=== PATIENT | male | born 1980 | race American Indian/Alaskan Native ===

== ENCOUNTER 2016-11-02 00:10 | Emergency (ER) | payer OTHER ==
[2016-11-02 00:24] VITALS: O2SAT 100
[2016-11-02] MEDS ORDERED: Sodium Chloride 0.9% 1,000 ML IV ONE ×2 (00:46)
[2016-11-02 01:08] LABS: BASO # 0.1 K/uL (0.0-0.2); EOS % 0.4 % (0.0-4.0); HEMATOCRIT 41.7 % (35.0-51.0); LYMPH # 2.4 K/uL (1.0-4.3); LYMPH % 34.3 % (20.0-40.0); MEAN CELL VOLUME 87.6 fL (80.0-94.0); MEAN CORPUSCULAR HEMOGLOBIN 29.4 pg (27.0-31.0); MEAN CORPUSCULAR HGB CONC 33.6 g/dL (33.0-37.0); MONO # 0.6 K/uL (0.0-0.8); MONO % 8.1 % (0.0-10.0); RED CELL DISTRIBUTION WIDTH 13.1 % (11.5-14.5); WHITE BLOOD COUNT 6.9 K/uL (4.8-10.8)
[2016-11-02 01:11] LABS: CHLORIDE 102 mmol/L (98-107)
[2016-11-02 01:12] LABS: POTASSIUM 3.8 mmol/L (3.6-5.2); SODIUM 141 mmol/L (132-148)
--- NOTE | 2016-11-02 01:13 | C.PDOC ---
History Of Present Illness A 36 year old male presents to the emergency room with complaints of abdominal pain for the last few days. Patient is a poor historian. Patient was seen at [facility] yesterday and left after the pain improved. Patient states pain returned 1 hr ago. Patient states the pain is severe and located in the epigastric region. Patient also notes several episodes of vomiting. Patient reports heavy daily drinking until 2 days ago. Patient denies any fever, chills, any urinary symptoms, diarrhea, or any other complaints. Time Seen by Provider: 11/02/16 00:41 Chief Complaint (Nursing): Abdominal Pain History Per: Patient History/Exam Limitations: no limitations Onset/Duration Of Symptoms: Hrs (Returned 1 hr ago), Days (Few days) Current Symptoms Are (Timing): Still Present Severity: Severe Location Of Pain/Discomfort: Epigastric Radiation Of Pain To:: None Quality Of Discomfort: "Pain" Associated Symptoms: Vomiting. denies: Fever, Chills, Diarrhea, Urinary Symptoms Exacerbating Factors: None Alleviating Factors: None Recent travel outside of the [place]: No Past Medical History Reviewed: Historical Data, Nursing Documentation, Vital Signs Vital Signs: Last Vital Signs Temp 98.3 F 11/02/16 05:28 Pulse 51 L 11/02/16 05:28 Resp 18 11/02/16 05:28 BP 95/59 L 11/02/16 05:28 Pulse Ox 100 11/02/16 05:33 - Medical History PMH: No Chronic Diseases Surgical History: No Surg Hx Family History: States: Unknown Family Hx - Social History Hx Alcohol Use: Yes Hx Substance Use: No (DENIED) Review Of Systems Constitutional: Negative for: Fever, Chills Gastrointestinal: Positive for: Vomiting, Abdominal Pain (Epigastric). Negative for: Diarrhea Physical Exam - Physical Exam Appears: In Acute Distress Skin: Warm, Dry Head: Atraumatic, Normacephalic Cardiovascular: Rhythm Regular, No Murmur Respiratory: Normal Breath Sounds, No Rales, No Rhonchi Gastrointestinal/Abdominal: Soft, Tenderness (Slight epigastric tenderness), No Guarding, No Rebound Extremity: Normal ROM, No Tenderness Neurological/Psych: Oriented x3, Normal Speech ED Course And Treatment - Laboratory Results Result Diagrams: 11/02/16 01:01 11/02/16 01:01 O2 Sat by Pulse Oximetry: 100 Medical Decision Making Medical Decision Making: Plan: -- Pepcid, Toradol, & Zofran -- Labs Progress Notes: Abd continued soft, but additional pain meds needed Labs unremarkable, no indication of surgical abd Plan dc home clinic f/u Disposition Counseled Patient/Family Regarding: Studies Performed, Diagnosis, Need For Followup - Disposition Referrals: [facility] [Outside] Disposition: HOME/ ROUTINE Disposition Time: 05:21 Condition: GOOD Additional Instructions: Follow up with pcp or our clinic Prescriptions: Famotidine [Pepcid] 1 tab PO BID #30 tab Ondansetron ODT [Zofran ODT] 1 odt PO BID PRN #6 odt PRN Reason: Nausea/Vomiting Instructions: Acute Abdominal Pain (ED) - Clinical Impression Clinical Impression: Abdominal pain - Scribe Statement The provider has reviewed the documentation as recorded by the Scribnikkie Santizo All medical record entries made by the Karolynibnikkie were at my direction and personally dictated by me. I have reviewed the chart and agree that the record accurately reflects my personal performance of the history, physical exam, medical decision making, and the department course for this patient. I have also personally directed, reviewed, and agree with the discharge instructions and disposition.
[2016-11-02 01:14] LABS: ALB/GLOB RATIO 1.2 (1.0-2.1); ALKALINE PHOSPHATASE 80 U/L (38-126); AST/SGOT 31 U/L (17-59); BILIRUBIN,TOTAL 0.6 mg/dL (0.2-1.3); BLOOD UREA NITROGEN 17 mg/dL (9-20); CARBON DIOXIDE 22 mmol/L (22-30); GFR AFRICAN-AMERICAN > 60; TOTAL PROTEIN 8.5 g/dL (6.3-8.3)
[2016-11-02 01:15] LABS: ALT/SGPT 36 U/L (21-72); CALCIUM 9.8 mg/dl (8.6-10.4); GLUCOSE,RANDOM 99 mg/dL (75-110)
[2016-11-02] MEDS ORDERED: Sodium Chloride 0.9% 50 ML IV ONE (01:42)
[2016-11-02 02:51] LABS: RBC URINE 16 /hpf (0-3); URINE BACTERIA OCC (<OCC); URINE BILIRUBIN NEGATIVE (NEGATIVE); URINE BLOOD NEGATIVE (NEGATIVE); URINE COLOR Yellow (YELLOW); URINE GLUCOSE (UA) NORMAL (Normal); URINE KETONE 1+ mg/dL (NEGATIVE); URINE LEUKOCYTE ESTERASE NEG Leu/uL (Negative); URINE PROTEIN 1+ mg/dL (NEGATIVE); WBC URINE 14 /hpf (0-5)
[2016-11-02 02:52] VITALS: RESP 18
[2016-11-02] MEDS ORDERED: HYDROmorphone 0.5 mg/0.5 ml ISec IVP STA (03:46)
[2016-11-02] MEDS ORDERED: Sodium Chloride 0.9% 1,000 ML ONE (03:50)
[2016-11-02 05:29] VITALS: BP 95/59; PULSE 51; TEMP 98.3
== END 2016-11-02 05:47 | disposition home or self-care (01) ==
LOC: C.ER 00:10
DX: R10.13 Epigastric pain (principal)

== ENCOUNTER 2016-11-03 13:34 | Observation (INO) | payer OTHER ==
[2016-11-03] MEDS ORDERED: Sodium Chloride 0.9% 1,000 ML IV ONE (14:34)
[2016-11-03 14:54] VITALS: RESP 20
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
[2016-11-03] MEDS ORDERED: Sodium Chloride 0.9% 1,000 ML ONE ×2 (15:58→20:10)
[2016-11-03 17:26] LABS: RBC URINE 36 /hpf (0-3); URINE BACTERIA RARE (<OCC); URINE BILIRUBIN NEGATIVE (NEGATIVE); URINE BLOOD 2+ (NEGATIVE); URINE COLOR Yellow (YELLOW); URINE GLUCOSE (UA) NORMAL (Normal); URINE KETONE 1+ mg/dL (NEGATIVE); URINE LEUKOCYTE ESTERASE NEG Leu/uL (Negative); URINE PROTEIN NEGATIVE (NEGATIVE); URINE UROBILINOGEN NORMAL mg/dL (0.2-1.0); WBC URINE 3 /hpf (0-5)
[2016-11-03] MEDS ORDERED: Iohexol 350mg/ml 100 ML ONE (17:40)
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
[2016-11-03 19:01] LABS: BASO # 0.1 K/uL (0.0-0.2); BASO % 0.8 % (0.0-2.0); HEMATOCRIT 36.7 % (35.0-51.0); LYMPH # 1.8 K/uL (1.0-4.3); LYMPH % 24.3 % (20.0-40.0); MEAN CELL VOLUME 87.2 fL (80.0-94.0); MEAN CORPUSCULAR HEMOGLOBIN 28.7 pg (27.0-31.0); MEAN CORPUSCULAR HGB CONC 32.9 g/dL (33.0-37.0); MEAN PLATELET VOLUME 8.1 fL (7.2-11.7); MONO # 0.6 K/uL (0.0-0.8); MONO % 7.7 % (0.0-10.0); RED CELL DISTRIBUTION WIDTH 13.2 % (11.5-14.5); WHITE BLOOD COUNT 7.6 K/uL (4.8-10.8)
[2016-11-03 19:08] LABS: CHLORIDE 101 mmol/L (98-107); POTASSIUM 3.3 mmol/L (3.6-5.2); SODIUM 139 mmol/L (132-148)
[2016-11-03 19:10] LABS: BILIRUBIN,TOTAL 0.4 mg/dL (0.2-1.3); GFR AFRICAN-AMERICAN > 60
[2016-11-03 19:11] LABS: ALB/GLOB RATIO 1.3 (1.0-2.1); ALKALINE PHOSPHATASE 55 U/L (38-126); ALT/SGPT 23 U/L (21-72); AST/SGOT 21 U/L (17-59); BLOOD UREA NITROGEN 11 mg/dL (9-20); CALCIUM 8.7 mg/dl (8.6-10.4); CARBON DIOXIDE 22 mmol/L (22-30); GLUCOSE,RANDOM 124 mg/dL (75-110); TOTAL PROTEIN 6.7 g/dL (6.3-8.3)
[2016-11-03] MEDS: Sodium Chloride 0.9% 1,000 ML IV SCH (20:14)
[2016-11-03] MEDS ORDERED: DiphenhydrAMINE 50 mg/ml Inj IVP STA (20:52)
[2016-11-03] MEDS ORDERED: Morphine 4 MG/ML VIAL ONE ×2 (20:54→20:59)
[2016-11-04] MEDS: Sodium Chloride 0.9% 1,000 ML IV SCH (06:15)
[2016-11-04] MEDS ORDERED: Potassium Chloride 20 mEq 100 ML IVPB ONE (08:16)
[2016-11-04 08:30] VITALS: BP 126/79; PULSE 75; TEMP 98.6; O2SAT 100
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
[2016-11-04] MEDS ORDERED: Potassium Chloride 20 mEq ER Tab PO ONE (10:49)
[2016-11-07] MEDS ORDERED: Pneumococcal 23-Valent Vaccine IM ONE (10:00)
[2016-11-07] MEDS ORDERED: Influenza Virus Vaccine 45 mcg/0.5 ml Syr IM ONE (10:00)
== END 2016-11-04 11:50 | disposition home or self-care (01) ==
LOC: C.ER 13:34 → C.9E 20:03 → C.3T 21:50
PROVIDERS: ADMIT Internal Medicine; ATTEND Internal Medicine
DX: K52.9 Noninfective gastroenteritis and colitis, unspecified (principal); E87.6 Hypokalemia

== ENCOUNTER 2018-02-16 11:52 | Emergency (ER) | payer OTHER ==
[2018-02-16 11:59] VITALS: BP 129/82; PULSE 64; RESP 16; TEMP 98.3; O2SAT 100
[2018-02-16] MEDS ORDERED: Sodium Chloride 0.9% 1,000 ML IV STA (12:11)
[2018-02-16 12:32] LABS: BASO # 0.1 K/uL (0.0-0.2); BASO % 1.3 % (0.0-2.0); EOS # 0.1 K/uL (0.0-0.7); HEMOGLOBIN 12.3 g/dL (12.0-18.0); LYMPH % 31.3 % (20.0-40.0); MEAN CELL VOLUME 86.9 fL (80.0-94.0); MEAN CORPUSCULAR HEMOGLOBIN 29.8 pg (27.0-31.0); MEAN CORPUSCULAR HGB CONC 34.3 g/dL (33.0-37.0); MEAN PLATELET VOLUME 8.5 fL (7.2-11.7); MONO # 0.5 K/uL (0.0-0.8); MONO % 8.7 % (0.0-10.0); NEUT # 3.6 K/uL (1.8-7.0); NEUT % 57.7 % (50.0-75.0); RBC 4.11 Mil/uL (4.40-5.90); RED CELL DISTRIBUTION WIDTH 13.1 % (11.5-14.5); WHITE BLOOD COUNT 6.3 K/uL (4.8-10.8)
[2018-02-16 12:36] LABS: SQUAMOUS EPITHIAL < 1 /hpf (0-5); URINE BACTERIA OCC (<OCC); URINE BILIRUBIN NEGATIVE (NEGATIVE); URINE BLOOD 3+ (NEGATIVE); URINE CLARITY Hazy (Clear); URINE COLOR Yellow (YELLOW); URINE GLUCOSE (UA) NORMAL (Normal); URINE LEUKOCYTE ESTERASE 3+ Leu/uL (Negative); URINE PROTEIN 1+ mg/dL (NEGATIVE); URINE UROBILINOGEN NORMAL mg/dL (0.2-1.0)
[2018-02-16 12:45] LABS: ALB/GLOB RATIO 1.3 (1.0-2.1); ALBUMIN 4.4 g/dL (3.5-5.0); ALT/SGPT 28 U/L (21-72); AST/SGOT 28 U/L (17-59); BLOOD UREA NITROGEN 11 mg/dL (9-20); CALCIUM 9.2 mg/dl (8.6-10.4); GFR AFRICAN-AMERICAN > 60; GFR NON-AFRICAN AMERICAN > 60; LIPASE 44 U/L (23-300)
[2018-02-16] MEDS ORDERED: cefTRIAXone (Rocephin) 250 mg Inj IM STA (13:05)
--- NOTE | 2018-02-16 13:41 | US ---
HISTORY: scrotal pain TECHNIQUE: Realtime sonography through the scrotum with color and doppler flow. COMPARISON: None Available. FINDINGS: RIGHT TESTICLE: Measures 5.1 x 2.3 x 3.0 cm. Normal echotexture and flow. RIGHT EPIDIDYMIS: Epididymal head measures 0.9 x 1.1 x 1.6 cm. Small cyst/ spermatocele measuring 0.7 x 0.6 x 0.6 cm. Grossly unremarkable appearance with normal flow. LEFT TESTICLE: Measures 4.7 x 2.0 x 2.9 cm. Normal echotexture and flow. Punctate testicular calcification. LEFT EPIDIDYMIS: Epididymal head measures 1.2 x 1.1 x 1.5 cm. Grossly unremarkable appearance with normal flow. HYDROCELE: None. VARICOCELE: Questionable small right varicocele. OTHER FINDINGS: None. IMPRESSION: No evidence of acute recent testicular torsion. Questionable small right varicocele. Small right epididymal head cyst/spermatocele.
--- NOTE | 2018-02-16 13:49 | C.PDOC ---
History Of Present Illness 37 year old male presents to the ED for evaluation after he noticed blood in his sperm over the past 3 days. Patient reports feeling discomfort in his testicular area. He denies fever, chills, urinary frequency/urgency at this time. Time Seen by Provider: 02/16/18 12:04 Chief Complaint (Nursing): Male Genitourinary History Per: Patient History/Exam Limitations: no limitations Onset/Duration Of Symptoms: Days (3) Current Symptoms Are (Timing): Still Present Associated Symptoms: denies: Fever, Chills, Urinary Symptoms Additional History Per: Patient Past Medical History Reviewed: Historical Data, Nursing Documentation, Vital Signs Vital Signs: Last Vital Signs Temp 98.3 F 02/16/18 11:57 Pulse 64 02/16/18 11:57 Resp 16 02/16/18 11:57 BP 129/82 02/16/18 11:57 Pulse Ox 100 02/16/18 18:36 - Medical History PMH: No Chronic Diseases Surgical History: No Surg Hx Family History: States: Unknown Family Hx - Social History Hx Alcohol Use: Yes (prior to onset of symtoms) Hx Substance Use: No - Immunization History Hx Tetanus Toxoid Vaccination: No Hx Influenza Vaccination: No Hx Pneumococcal Vaccination: No Review Of Systems Constitutional: Negative for: Fever, Chills Gastrointestinal: Positive for: Other (hematospermia) Genitourinary: Negative for: Frequency Physical Exam - Physical Exam Appears: Non-toxic, No Acute Distress Skin: Normal Color, Warm, Dry Head: Atraumatic, Normacephalic Eye(s): bilateral: Normal Inspection Oral Mucosa: Moist Neck: Supple Chest: Symmetrical, No Deformity, No Tenderness Cardiovascular: Rhythm Regular Respiratory: Normal Breath Sounds, No Rales, No Rhonchi, No Wheezing Gastrointestinal/Abdominal: Soft, No Tenderness, No Guarding, No Rebound Male Genital: Normal Inspection, No Testicular Tenderness, No Testicular Swelling Extremity: Normal ROM, Capillary Refill (less than 2 seconds ) Neurological/Psych: Oriented x3, Normal Speech, Normal Cognition ED Course And Treatment - Laboratory Results Result Diagrams: 02/16/18 12:27 02/16/18 12:27 O2 Sat by Pulse Oximetry: 100 (on RA) Pulse Ox Interpretation: Normal - CT Scan/US testicular ultrasound Other Rad Studies (CT/US): Interpreted By Me, Read By Radiologist, Radiology Report Reviewed CT/US Interpretation: HISTORY: scrotal pain. TECHNIQUE: Realtime sonography through the scrotum with color and doppler flow. COMPARISON: None Available. FINDINGS: RIGHT TESTICLE: Measures 5.1 x 2.3 x 3.0 cm. Normal echotexture and flow. RIGHT EPIDIDYMIS: Epididymal head measures 0.9 x 1.1 x 1.6 cm. Small cyst/ spermatocele measuring 0.7 x 0.6 x 0.6 cm. Grossly unremarkable appearance with normal flow. LEFT TESTICLE: Measures 4.7 x 2.0 x 2.9 cm. Normal echotexture and flow. Punctate testicular calcification. LEFT EPIDIDYMIS : Epididymal head measures 1.2 x 1.1 x 1.5 cm. Grossly unremarkable appearance with normal flow. HYDROCELE: None. VARICOCELE: Questionable small right varicocele. OTHER FINDINGS: None. IMPRESSION: No evidence of acute recent testicular torsion. Questionable small right varicocele. Small right epididymal head cyst/spermatocele. Progress Note: Bloodwork, urinalysis, testicular ultrasound ordered and reviewed. Doxycycline PO, Rocephin IM, and IV Fluids administered. On re- examination, patient is resting comfortably, showing no signs of distress and is stable for discharge. Patient will be discharged with prescription for Doxycycline and is advised to follow up urologist within 1-2 days for further evaluation and/or return to the ED if symptoms persist or worsen. Disposition - Disposition Referrals: Jensen Liang MD [Staff Provider] - Disposition: HOME/ ROUTINE Disposition Time: 13:47 Condition: STABLE Additional Instructions: Follow up with Urologist within 2-3 days. Return to ED if feel worse. Prescriptions: Doxycycline Hyclate [Doryx] 100 mg PO BID #14 cap Instructions: Urinary Tract Infections in Adults Forms: [employer] (Uzbek) - Clinical Impression Clinical Impression: Hematospermia - PA / COMMERCIAL LENDING RELATIONSHIP MANAGER / Resident Statement MD/DO has reviewed & agrees with the documentation as recorded. - Scribe Statement The provider has reviewed the documentation as recorded by the Scribe (Alanis Watters) All medical record entries made by the Scribe were at my direction and personally dictated by me. I have reviewed the chart and agree that the record accurately reflects my personal performance of the history, physical exam, medical decision making, and the department course for this patient. I have also personally directed, reviewed, and agree with the discharge instructions and disposition.
== END 2018-02-16 14:01 | disposition home or self-care (01) ==
LOC: C.ER 11:52
DX: R36.1 Hematospermia (principal)
CPT/HCPCS: 76870; 80053; 81001; 83690; 85025; 87086; 87491; 87591; 96360; 96372; 99283; J0696; J7030